=== PATIENT | female | born 1990 | race Two or more races ===

== ENCOUNTER 2021-05-13 17:23 | Emergency (ER) | payer MEDICAID ==
[~2021-05-13] VITALS: Ht 152.4 cm; Wt 69.9 kg
--- NOTE | 2021-05-13 18:02 | NUR ---
BIBS FOR C/O CHEST PAIN (PRESSURE) 3 MONTHS, PAIN WORST TODAY. THE PATIENT STATES THE PATIENT IS NON-RADIATING AND RATES 5/10. IN ROOM AIR AND DENIES SOB. RESPIRATION REGULAR AND UNLABORED. WILL CONTINUE TO MONITOR THE PATIENT.
--- NOTE | 2021-05-13 18:22 | NUR ---
STARTED IV LINE, BLOOD SPECIMEN COLLECTED AND SENT TO THE LAB. THE LINE IS SALINE LOCKED.
[2021-05-13] MEDS ORDERED: KETOROLAC TROMETHAMINE INJ 30 MG/ML VIAL IV ONE (18:30)
--- NOTE | 2021-05-13 18:34 | NUR ---
URINE COLLECTED AND SENT TO THE LAB
[2021-05-13 18:35] LABS: BASOPHILS # (AUTO) 0.1 K/uL (0.0-0.2); BASOPHILS % (AUTO) 0.7 % (0.0-2.0); EOSINOPHILS % (AUTO) 2.4 % (0.0-6.0); HEMATOCRIT 38 % (33-45); HEMOGLOBIN 12.6 g/dL (11.5-14.8); LYMPHOCYTES % (AUTO) 37.3 % (20.0-44.0); MEAN CORPUSCULAR HGB CONC 33 g/dl (31.0-36.0); MEAN CORPUSCULAR VOLUME 92 fL (82-100); MONOCYTES # (AUTO) 0.5 K/uL (0.1-1.30); MONOCYTES % (AUTO) 6.7 % (2.0-12.0); NEUTROPHILS # (AUTO) 4.3 K/uL (1.8-8.9); NEUTROPHILS % (AUTO) 52.9 % (43.0-81.0); PLATELET COUNT (AUTO) 327 K/uL (150-450); RED BLOOD CELL COUNT(AUTO) 4.11 MIL/uL (4.0-5.2); WHITE BLOOD COUNT (AUTO) 8.1 K/uL (4.3-11.0)
--- NOTE | 2021-05-13 18:35 | NUR ---
URINE PERGANCY TEST ORDERED BY DR HE. NOTED AND CARRIED OUT.
[2021-05-13 18:47] LABS: CALCIUM, SERUM 8.6 mg/dL (8.5-10.1); CARBON DIOXIDE 27 mmol/L (21-32); CHLORIDE 104 mmol/L (98-107); CREATININE 0.6 mg/dL (0.6-1.3); GLUCOSE 98 mg/dL (74-106); POTASSIUM 3.6 mmol/L (3.5-5.1); SODIUM SERUM 140 mmol/L (136-145); UREA NITROGEN, BLOOD 10 mg/dL (7-18)
[2021-05-13] MEDS ORDERED: KETOROLAC TROMETHAMINE 15 MG/ML VIAL ONE (19:26)
[2021-05-13] MEDS ORDERED: KETOROLAC TROMETHAMINE INJ 30 MG/ML VIAL ONE (19:26)
[2021-05-13] MEDS ORDERED: LIDOCAINE VISCOUS 2% UD 15 ML UDC MM ONE (20:00)
[2021-05-13] MEDS ORDERED: MAG HYDROX/AL HYDROX/SIMETH 30 ML UDC PO ONE (20:00)
[2021-05-13] MEDS ORDERED: OMEP40CA21 PO (20:03)
[2021-05-13] MEDS ORDERED: MAG HYDROX/AL HYDROX/SIMETH 30 ML UDC ONE (20:12)
[2021-05-13] MEDS ORDERED: LIDOCAINE VISCOUS 2% UD 15 ML UDC ONE (20:13)
--- NOTE | 2021-05-13 20:22 | NUR ---
Patient discharged to home in stable condition. Written and verbal after care instructions given. Patient verbalizes understanding of instruction. IV removed. Catheter intact and site benign. Pressure and 4x4 applied to site. No bleeding noted. Pt ambulatory with a steady gait
[2021-05-13 20:38] VITALS: BP 130/65
== END 2021-05-13 20:22 | disposition home or self-care (01) ==
LOC: ER 17:26
DX: R07.89 Other chest pain (principal); Z79.899 Other long term (current) drug therapy
CPT/HCPCS: 36415; 71045; 80048; 83880; 84484; 84703; 85025; 85378; 93005 ×2; 96374; 99285; J1885 ×2